=== PATIENT | female | born 1970 | race Hispanic/Latino ===

== ENCOUNTER 2017-03-01 08:10 | Day surgery (SDC) | payer BC ==
[2017-03-01] MEDS ORDERED: Lactated Ringer's 1,000 ML IV ONE (09:25)
[2017-03-01] MEDS ORDERED: Propofol 10 mg/ml Inj (20 ML) ONE ×2 (11:22→11:36)
[2017-03-01 12:02] VITALS: BP 103/59; PULSE 67; RESP 20; TEMP 97; O2SAT 100
== END 2017-03-01 12:27 | disposition home or self-care (01) ==
LOC: H.ENDO 08:10
PROVIDERS: ATTEND Internal Medicine Gastroenterology
DX: Z86.010 Personal history of colon polyps (principal); K64.4 Residual hemorrhoidal skin tags; K64.8 Other hemorrhoids; K29.50 Unspecified chronic gastritis without bleeding
CPT/HCPCS: 43239; 88305; G0105; J2704; J7120